=== PATIENT | male | born 1990 | race Caucasian/White ===

== ENCOUNTER 2020-01-21 14:45 | Emergency (ER) | payer OTHER ==
[~2020-01-21] VITALS: Ht 170.2 cm; Wt 89.8 kg
[2020-01-21 14:58] VITALS: Ht 170.2 cm; Wt 89.8 kg
[2020-01-21 16:31] VITALS: BP 117/71
== END 2020-01-21 16:31 | disposition home or self-care (01) ==
LOC: ED 14:45
DX: S61.012A Laceration without foreign body of left thumb without damage to nail, initial encounter (principal); W26.8XXA Contact with other sharp object(s), not elsewhere classified, initial encounter; Y93.89 Activity, other specified; Y92.89 Other specified places as the place of occurrence of the external cause; Y99.8 Other external cause status
CPT/HCPCS: J2001